=== PATIENT | female | born 1995 | race Caucasian/White ===

== ENCOUNTER 2017-06-23 01:07 | Emergency (ER) | payer OTHER ==
[~2017-06-23] VITALS: Ht 157.5 cm; Wt 89.8 kg
[~2017-06-23 01:07] MED LIST: TYLENOL WITH C1 EACH PO
[2017-06-23 01:42] LABS: HEMOGLOBIN 13.1 G/DL (11.9-15.5); MCH 32.3 PG (29.0-34.0); MCHC 34.5 G/DL (30.0-36.0); MCV 93.6 FL (83-99); PLATELET COUNT 273 K/uL (156-360); RBC DIS.WIDTH-SD 41.4 % (39-53); RED BLOOD COUNT 4.06 M/uL (3.80-5.20); WHITE BLOOD COUNT 8.7 K/uL (4.1-10.2)
[2017-06-23 01:55] LABS: ALBUMIN 4.6 g/dL (3.2-4.8); CHLORIDE 106 mEq/L (99-109); POTASSIUM 3.7 mEq/L (3.7-5.4); SODIUM 138 mEq/L (136-147)
[2017-06-23 01:57] LABS: GLUCOSE 121 mg/dL (70-99); TOTAL PROTEIN 7.9 g/dL (6.4-8.3)
[2017-06-23 01:59] LABS: TOTAL BILIRUBIN 0.4 mg/dL (0.0-1.0)
[2017-06-23 02:01] LABS: ALKALINE PHOSPHATASE 93 IU/L (3-129); CREATININE 0.7 mg/dL (0.6-1.3); GFR ESTIMATE (CALCULATED) > 59 mL/min/
[2017-06-23 02:02] LABS: UREA NITROGEN (BUN) 11 mg/dL (9-23)
[2017-06-23 02:03] LABS: AST (GOT) 24 IU/L (2-34)
[2017-06-23 02:04] LABS: ALT (GPT) 41 IU/L (3-49); LIPASE 19 U/L (1.0-51.0)
[2017-06-23 02:12] LABS: QUANTITATIVE HCG < 4.0 MIU/ML
[2017-06-23 04:18] VITALS: BP 134/81
== END 2017-06-23 04:18 | disposition home or self-care (01) ==
LOC: EME 01:07
DX: K59.00 Constipation, unspecified (principal); R10.13 Epigastric pain; Z88.6 Allergy status to analgesic agent
CPT/HCPCS: 74019; 76705; 80053; 81003; 83690; 84702; 85027; 99281; 99283